=== PATIENT | female | born 1990 | race Hispanic/Latino ===

== ENCOUNTER 2017-08-23 05:30 | Inpatient (IN) | payer MEDICAID, OTHER ==
[2017-08-23] MEDS: Lactated Ringer's 1,000 ML IV SCH ×2 (06:08→18:09)
[2017-08-23] MEDS ORDERED: Acetaminophen 500 MG TAB PO PRN (06:26)
[2017-08-23] MEDS ORDERED: Docusate 100 MG CAP PO PRN (06:26)
[2017-08-23] MEDS ORDERED: Ondansetron HCl/PF 4 MG/2 ML Vial IVP PRN ×3 (06:26→18:06)
[2017-08-23] MEDS ORDERED: Promethazine HCl 25 MG/ML VIAL IM PRN ×2 (06:26→09:08)
[2017-08-23] MEDS ORDERED: Bicitra 30 ML UDCUP PO SCH (06:45)
[2017-08-23 06:50] LABS: Hematocrit 41.9 % (36.0-47.0); Mean Platelet Volume 9.7 fL (7.4-10.4); Red Blood Cell (RBC) Count 4.95 mill/uL (4.20-5.40); White Blood Cell (WBC) Count 13.2 thou/uL (4.8-10.8)
[2017-08-23] MEDS ORDERED: LR 500 ML/Oxytocin 10 units 500 ML IV SCH (07:45)
[2017-08-23] MEDS ORDERED: Fentanyl 4 mcg/Marc 0.1% Cadd 100 ML ONE (08:23)
[2017-08-23] MEDS ORDERED: diphenhydrAMINE HCl 50 MG/ML 1 ML VIAL IVP PRN (09:08)
[2017-08-23] MEDS ORDERED: Naloxone HCl 0.4 mg/ml Vial IVP PRN ×2 (09:08)
[2017-08-23] MEDS ORDERED: Lactated Ringer's 500 ML IV PRN (09:08)
[2017-08-23] MEDS ORDERED: Acetaminophen 325 MG TAB PO PRN (09:08)
[2017-08-23] MEDS ORDERED: Eucerin (Mineral Oil/Petrolatum,White) 30 gm Jar TOP PRN (09:08)
[2017-08-23] MEDS ORDERED: ePHEDrine/0.9% NaCl/PF SYRINGE 50 mg/10 ml SLOW IVP PRN (09:08)
[2017-08-23] MEDS ORDERED: Communication Order-Pharmacy FS SCH (09:15)
[2017-08-23] MEDS ORDERED: Fentanyl 4mcg/Marcaine 0.1% Cassette 100 ML EPIDURAL SCH (09:15)
[2017-08-23] MEDS: Dextrose 5%-Lactated Ringers 1,000 ML IV SCH ×2 (10:25→18:10)
[2017-08-23] MEDS ORDERED: Lidocaine 1% (PF) 30 ML VIAL ONE ×2 (12:09→15:18)
--- NOTE | 2017-08-23 14:05 | PDOC.LDPN ---
Labor & Delivery Progress Note - Subjective Subjective: comfortable - Objective Vital signs reviewed and normal: yes General: NAD, resting Uterine fundus: non tender SVE: 12:00 Dilation: Complete Effacement: 100% Station: 2+ FHT: category 1 [place] contractions every: 2 min - Assessment (1) Vaginal after () Code(s): O34.219 - MATERNAL CARE FOR UNSP TYPE SCAR FROM PREVIOUS DEL Current Visit: Yes Status: Acute Plan: pitocin for augmentation -: complete/100/+2. Pt has epidural in place. Pain is very well controlled. -Will start pushing with patient. -will continue pitocin FHT category 1 -Will continue to monitor
[2017-08-23] MEDS: LR / Pitocin 40 units/1000 ml 1,000 ML ONE ×2 (14:55→16:56)
[2017-08-23] MEDS ORDERED: Preparation H Ointment 28 GM TUBE PR PRN ×2 (15:14→18:06)
[2017-08-23] MEDS ORDERED: diphenhydrAMINE HCl 25 MG CAP PO PRN ×2 (15:14→18:06)
[2017-08-23] MEDS ORDERED: Lanolin Ointment 7 GM TUBE TOP PRN ×2 (15:14→18:06)
[2017-08-23] MEDS ORDERED: Bisacodyl 10 MG SUPP PR PRN ×2 (15:14→18:06)
[2017-08-23] MEDS ORDERED: Milk Of Magnesia 30 ML UDCUP PO PRN (15:14)
[2017-08-23] MEDS ORDERED: Acetaminophen/Codeine 30-300mg Tablet PO PRN ×2 (15:14)
[2017-08-23] MEDS ORDERED: LR / Pitocin 40 units/1000 ml 1,000 ML IV SCH ×2 (15:15→18:06)
[2017-08-23] MEDS ORDERED: Ferrous Sulfate 325 MG TAB PO SCH (17:00)
[2017-08-23] MEDS ORDERED: traMADol HCl 50 MG TAB PO PRN (18:06)
[2017-08-23] MEDS ORDERED: Benzocaine/Menthol 20-0.5% 60 ML CAN TOP PRN (18:06)
[2017-08-23] MEDS ORDERED: Adacel (T-DAP) 0.5 ML VIAL IM ONE (18:30)
[2017-08-23] MEDS: traMADol HCl 50 MG TAB PO PRN (19:03)
[2017-08-23] MEDS ORDERED: Docusate (Surfak) 240 MG CAP PO SCH (21:00)
[2017-08-23] MEDS: Docusate (Surfak) 240 MG CAP PO SCH (21:37)
[2017-08-23] MEDS: Ibuprofen 800 MG TAB PO SCH (21:37)
[2017-08-23] MEDS ORDERED: Ibuprofen 800 MG TAB PO SCH (22:00)
[2017-08-24] MEDS: Ibuprofen 800 MG TAB PO SCH ×3 (04:34→21:54)
[2017-08-24] MEDS: traMADol HCl 50 MG TAB PO PRN (04:34)
--- NOTE | 2017-08-24 06:25 | DN-2 ---
DATE OF DELIVERY: 08/23/2017 at [facility]. DELIVERING PHYSICIANS: David Stoddard, Enoch Wright M.D., and Rosemarie Patton M.D.. ATTENDING PHYSICIAN: Maurisio Stoddard M.D. PROCEDURE: , vaginal after . ANESTHESIA: Epidural and local for repair. ESTIMATED BLOOD LOSS: 600 mL PREOPERATIVE DIAGNOSES: 1. Term intrauterine in labor. 2. History of prior . 3. GBS unknown. 4. History of inadequate contraction. POSTOPERATIVE DIAGNOSES: 1. Term intrauterine , delivered. 2. Vaginal after . 3. GBS unknown. 4. History of inadequate contraction. INDICATIONS: A 27-year-old female G2, P1, presented in active labor. DELIVERY NOTE: This is a 27-year-old female, G2, P1-0-0-1 at 39 and 4 weeks. She delivered a viabl e female at 1442. Following an uneventful antepartum course, a vigorous female was delivered over an intact perineum in the occiput anterior position, anterior shoulder and the remainder of th e body were delivered. No nuchal cord. The head was held down and the mouth and nares were bulb jordan ctioned. Cord clamped and cut and cord blood collected. Placenta was delivered intact with 3-vesse l cord noted. Fundal massage was performed and the fundus was firm. The cervix and vagina were ins pected and there was found to be a third-degree laceration. The laceration was no noted and vaginal wall was repaired with 3-0 chromic suture in the usual fashion with good approximation and the inte rnal capsule of part of the third-degree laceration was repaired with 3-0 Vicryl and adequate approx imation as well. This was repaired in the usual fashion with good approximation and hemostasis afte r local anesthetic, 1% lidocaine was injected at the wound site. The then went to the [facility] nursery in good condition for routine care. Apgars were 8 and 9 at 1 and 5 minutes respectively. The patient tolerated delivery well and went to the after routine recovery/care.
[2017-08-24 07:29] LABS: Mean Platelet Volume 8.7 fL (7.4-10.4); Red Blood Cell (RBC) Count 3.68 mill/uL (4.20-5.40)
--- NOTE | 2017-08-24 08:38 | PRG ---
DATE OF SERVICE: 08/23/2017 PRIMARY OB: Clinic. HISTORY OF PRESENT ILLNESS: The patient is a 27-year-old female G2, now P2, day 1, statu s post a successful vaginal after section. Delivery was complicated by a partial thi rd degree laceration repaired in usual fashion. The patient today reports that she is tolerating p. o., voiding on her own, having decreased lochia and good pain control. PHYSICAL EXAMINATION: VITAL SIGNS: Today blood pressure is 101/86, temperature 98.0, pulse is 75, respiratory rate of 20. GENERAL: She appears to be in no acute distress. She is alert and oriented, and cooperative and pl easant and interactive. HEENT: Normocephalic, atraumatic. ABDOMEN: Soft. Fundus is firm at the umbilicus. EXTREMITIES: Nontender, nonedematous. LABORATORY STUDIES: Her postoperative CBC; white count is 13.0, hemoglobin is 10.4, hematocrit 32.0 , platelets 162,000. ASSESSMENT AND PLAN: The patient is day 1, status post a successful vaginal after with a partial third degree laceration. The patient will continue care here in the hospital. Anticipate discharge tomorrow.
[2017-08-24] MEDS ORDERED: Prenatal Vitamin 1 TAB PO SCH (09:00)
[2017-08-24] MEDS: Prenatal Vitamin 1 TAB PO SCH (09:50)
[2017-08-24] MEDS: Ferrous Sulfate 325 MG TAB PO SCH (09:51)
[2017-08-24] MEDS: Docusate (Surfak) 240 MG CAP PO SCH ×2 (09:51→21:53)
[2017-08-24] MEDS: Milk Of Magnesia 30 ML UDCUP PO SCH (09:51)
[2017-08-25] MEDS: Ferrous Sulfate 325 MG TAB PO SCH ×2 (03:45→09:06)
[2017-08-25] MEDS: Ibuprofen 800 MG TAB PO SCH ×2 (05:39→13:59)
--- NOTE | 2017-08-25 07:36 | PDOC.PP ---
Post Progress Note Post Day #: 2 PO intake tolerated: yes Flatus: yes Ambulation: yes Vital Signs (12 hours) Temp Pulse Resp BP 08/24/17 19:45 97.5 F L 77 16 109/57 L Weight Weight 74.843 kg - Physical Examination General: NAD Cardiovascular: no m/r/g, RRR Respiratory: clear to ausculation bilateral Abdominal: + bowel sounds, lochia, appropriately TTP Neurological: no gross focal deficits Psychiatric: normal affect Result Diagrams: 08/24/17 07:01 Additional Labs: Post Labs Blood Type O POSITIVE 08/23/17 06:06 Hep Bs Antigen Non-Reactive S/CO (NonReactive) 08/23/17 06:06 (1) Vaginal after () Code(s): O34.219 - MATERNAL CARE FOR UNSP TYPE SCAR FROM PREVIOUS DEL Status: Acute (2) Term of female Code(s): Z37.0 - SINGLE LIVE Status: Acute - Assessment/Plan -VSS -tolerating po -urinating, bm -pain controlled scant lochia -DC home today, pending baby stable for dc
[2017-08-25 09:00] VITALS: TEMP 97.6
[2017-08-25 09:01] VITALS: BP 107/60
[2017-08-25] MEDS: Docusate (Surfak) 240 MG CAP PO SCH (09:05)
[2017-08-25] MEDS: Milk Of Magnesia 30 ML UDCUP PO SCH (09:05)
[2017-08-25] MEDS: Prenatal Vitamin 1 TAB PO SCH (09:05)
[2017-08-26] MEDS ORDERED: FLU VACC QS2017-18 36 mo. & older 0.5 ML SYRINGE IM ONE (09:00)
== END 2017-08-25 15:15 | disposition home or self-care (01) | DRG 775 ==
LOC: L&D/OP 05:30 → L&D 14:42 → 3SW 17:42
PROVIDERS: ADMIT Obstetrics & Gynecology; ATTEND Obstetrics & Gynecology
PROC: 10E0XZZ Delivery of Products of Conception, External Approach (ICD-10-PCS; principal; 2017-08-23)
PROC: 0DQR0ZZ Repair Anal Sphincter, Open Approach (ICD-10-PCS; 2017-08-23)
PROC: 10907ZC Drainage of Amniotic Fluid, Therapeutic from Products of Conception, Via Natural or Artificial Opening (ICD-10-PCS; 2017-08-23)
DX: O34.219 Maternal care for unspecified type scar from previous cesarean delivery (principal); O70.20 Third degree perineal laceration during delivery, unspecified; Z37.0 Single live birth; Z3A.39 39 weeks gestation of pregnancy
CPT/HCPCS: 36415; 85027; 86780; 86850; 86900; 86901; 87340; 90715; J2001; J7120